=== PATIENT | female | born 1930 | race Caucasian/White ===

== ENCOUNTER 2016-10-06 00:52 | Emergency (ER) | payer OTHER ==
[~2016-10-06] VITALS: Ht 152.4 cm; Wt 79.1 kg
[~2016-10-06 00:52] MED LIST: ASPI81TA82 PO; BUPR-197 PO; CALCTAB36 PO; ENAL20TA81 PO; FE T325T PO; HYDR-2768 PO; KCL10C PO; METHO500 PO; METO50CR PO; TAB-TAB5 PO; TERA5CAP3 PO; [UNRECOGNIZED DRUG - CODE]
[2016-10-06 00:55] VITALS: BP 154/76; PULSE 74; RESP 18; TEMP 98.7; O2SAT 97
[2016-10-06] MEDS ORDERED: SODIUM CHLORIDE 0.9% FLUSH 5 ML FLUSH IVF PRN (01:15)
[2016-10-06 01:34] LABS: AUTOMATED NEUTROPHIL # 9.2 TH/MM3 (1.8-7.7); BASOPHIL # 0.2 TH/MM3 (0-0.2); BASOPHIL % 1.9 % (0.0-2.0); EOSINOPHIL # 0.1 TH/MM3 (0-0.4); EOSINOPHIL % 0.8 % (0.0-4.0); HEMATOCRIT 34.5 % (35.0-46.0); HEMO FLAGS DIFF FINAL; LYMPHOCYTE # 1.5 TH/MM3 (1.0-4.8); MEAN CELL VOLUME 92.8 FL (80.0-100.0); MEAN CORPUSCULAR HEMOGLOBIN 29.9 PG (27.0-34.0); MEAN CORPUSCULAR HGB CONC 32.2 % (32.0-36.0); MONO % 4.9 % (0.0-8.0); NEUT % 79.4 % (16.0-70.0); PLATELET COUNT 235 TH/MM3 (150-450); RED BLOOD COUNT 3.72 MIL/MM3 (4.00-5.30); RED CELL DISTRIBUTION WIDTH 12.8 % (11.6-17.2); WHITE BLOOD COUNT 11.6 TH/MM3 (4.0-11.0)
[2016-10-06 01:41] LABS: CHLORIDE 104 MEQ/L (98-107); POTASSIUM 3.8 MEQ/L (3.5-5.1); SODIUM (NA) 143 MEQ/L (136-145)
[2016-10-06 01:45] LABS: ANION GAP 8 MEQ/L (5-15); BICARBONATE 31.4 MEQ/L (21.0-32.0); BLOOD UREA NITROGEN 23 MG/DL (7-18)
[2016-10-06 01:48] LABS: ALT (GPT) 18 U/L (10-53); AST (GOT) 12 U/L (15-37); GLOMERULAR FILTRATION RATE 56 ML/MIN (>89)
[2016-10-06 01:49] LABS: TOTAL BILIRUBIN ADULT 0.3 MG/DL (0.2-1.0)
[2016-10-06 01:51] LABS: ALKALINE PHOSPHATASE 64 U/L (45-117)
[2016-10-06] MEDS ORDERED: HYDR25TA5 PO (01:57)
[2016-10-06] MEDS ORDERED: BUPR100CR PO (01:57)
[2016-10-06] MEDS ORDERED: CALC1TAB12 PO (01:57)
[2016-10-06] MEDS ORDERED: METO50TA11 PO (01:57)
[2016-10-06] MEDS ORDERED: FERR325T PO (01:57)
[2016-10-06] MEDS ORDERED: ROBA500T PO (01:57)
[2016-10-06] MEDS ORDERED: ENAL20TA81 PO (01:57)
[2016-10-06] MEDS ORDERED: TERA5CAP3 PO (01:57)
[2016-10-06] MEDS ORDERED: [UNRECOGNIZED DRUG - CODE] (01:57)
[2016-10-06] MEDS ORDERED: ASPI1TAB69 PO (01:57)
[2016-10-06] MEDS ORDERED: SODIUM CHLOR 0.9% 1000 ML INJ 1,000 ML IV SCH ×2 (02:15→03:45)
--- NOTE | 2016-10-06 02:52 | PD ---
HPI Chief Complaint: Abdominal Pain Time Seen by Provider: 01:02 Travel History International Travel<30 days: No Contact w/Intl Traveler<30days: No Traveled to known affect area: No History of Present Illness HPI The patient is an 85-year-old female that complains of generalized abdominal discomfort beginning at 6 PM tonight. She has vomiting but no diarrhea. She states she had some small amount of blood in the vomitus. She denies any fever. She has had a hysterectomy but still has her gallbladder and appendix. PFSH Past Medical History Hx Anticoagulant Therapy: Yes (81MG ASA) Anxiety: Yes Cardiovascular Problems: Yes (HTN) Hypertension: Yes ?: Not Menopausal: No Past Surgical History Section: Yes (3) Hysterectomy: Yes Social History Alcohol Use: Yes (OCCAS) Tobacco Use: Yes (CIGARETTES, 1/2 PPD) Substance Use: No Allergies-Medications (Allergen,Severity, Reaction): Coded Allergies: Morphine (Verified Allergy, Severe, Itching, 10/06/16) Reported Meds & Prescriptions Reported Meds & Active Scripts Active Reported Terazosin (Terazosin HCl) 5 Mg Cap 5 Mg PO HS Eql Natural Fiber (Psyllium) 58.6 % Pow Metoprolol Succinate ER 24 HR (Metoprolol Succinate) 50 Mg Tab 50 Mg PO DAILY Robaxin (Methocarbamol) 500 Mg Tab 500 Mg PO TID Hydrochlorothiazide 25 Mg Tab 25 Mg PO DAILY Ferrous Sulfate 325 Mg Tab 325 Mg PO DAILY Vasotec (Enalapril Maleate) 20 Mg Tab 20 Mg PO DAILY Calcium 500 +D (Calcium Carbonate-Cholecalciferol) 500-400 Mg-Unit Tab 1 Tab PO BID Wellbutrin SR 12 HR (Bupropion HCl) 100 Mg Tab 100 Mg PO Q12HR Aspirin 81 Mg Tabdr 81 Mg PO DAILY Review of Systems Except as stated in HPI: all other systems reviewed are Neg Physical Exam Narrative GENERAL: The patient is alert, oriented 3 and slight apparent distress with her abdominal discomfort and nausea. Her vital signs show blood pressure 121/ 76 but otherwise normal. SKIN: Warm and dry. No skin rash is seen. HEAD: Atraumatic. Normocephalic. EYES: Pupils equal and round. No scleral icterus. No injection or drainage. ENT: No nasal bleeding or discharge. Mucous membranes pink and moist. NECK: Trachea midline. No JVD. CARDIOVASCULAR: Regular rate and rhythm. No murmur appreciated. RESPIRATORY: No accessory muscle use. Clear to auscultation. Breath sounds equal bilaterally. GASTROINTESTINAL: Abdomen soft, non-tender except for some minimal discomfort in the midline epigastrium, protuberant but nondistended. Hepatic and splenic margins not palpable. No guarding or rebound is present. MUSCULOSKELETAL: No obvious deformities. No clubbing. No cyanosis. No edema. NEUROLOGICAL: Awake and alert. No obvious cranial nerve deficits. Motor grossly within normal limits. Normal speech. PSYCHIATRIC: Appropriate mood and affect; insight and judgment normal. Data Data Last Documented VS Vital Signs Date Time Temp Pulse Resp B/P Pulse Ox O2 Delivery O2 Flow Rate FiO2 10/06/16 00:55 98.7 74 18 154/76 97 Orders Complete Blood Count With Diff (10/06/16 01:07) Comprehensive Metabolic Panel (10/06/16 01:07) Lipase (10/06/16 01:07) Ct Abd/Pel W Iv Contrast(Rout) (10/06/16 01:07) Iv Access Insert/Monitor (10/06/16 01:07) Ecg Monitoring (10/06/16 01:07) Oximetry (10/06/16 01:07) Sodium Chloride 0.9% Flush (Ns Flush) (10/06/16 01:15) Urinalysis - C+S If Indicated (10/06/16 02:00) Sodium Chlor 0.9% 1000 Ml Inj (Ns 1000 M (10/06/16 02:15) Iohexol 350 Inj (Omnipaque 350 Inj) (10/06/16 02:56) Labs Laboratory Tests Test 10/06/16 01:30 White Blood Count 11.6 TH/MM3 Red Blood Count 3.72 MIL/MM3 Hemoglobin 11.1 GM/DL Hematocrit 34.5 % Mean Corpuscular Volume 92.8 FL Mean Corpuscular Hemoglobin 29.9 PG Mean Corpuscular Hemoglobin 32.2 % Concent Red Cell Distribution Width 12.8 % Platelet Count 235 TH/MM3 Mean Platelet Volume 8.9 FL Neutrophils (%) (Auto) 79.4 % Lymphocytes (%) (Auto) 13.0 % Monocytes (%) (Auto) 4.9 % Eosinophils (%) (Auto) 0.8 % Basophils (%) (Auto) 1.9 % Neutrophils # (Auto) 9.2 TH/MM3 Lymphocytes # (Auto) 1.5 TH/MM3 Monocytes # (Auto) 0.6 TH/MM3 Eosinophils # (Auto) 0.1 TH/MM3 Basophils # (Auto) 0.2 TH/MM3 CBC Comment DIFF FINAL Differential Comment Sodium Level 143 MEQ/L Potassium Level 3.8 MEQ/L Chloride Level 104 MEQ/L Carbon Dioxide Level 31.4 MEQ/L Anion Gap 8 MEQ/L Blood Urea Nitrogen 23 MG/DL Creatinine 0.95 MG/DL Estimat Glomerular Filtration 56 ML/MIN Rate Random Glucose 129 MG/DL Calcium Level 8.8 MG/DL Total Bilirubin 0.3 MG/DL Aspartate Amino Transf 12 U/L (AST/SGOT) Alanine Aminotransferase 18 U/L (ALT/SGPT) Alkaline Phosphatase 64 U/L Total Protein 6.5 GM/DL Albumin 3.4 GM/DL Lipase 146 U/L [facility] Medical Decision Making Medical Screen Exam Complete: Yes Emergency Medical Condition: Yes Medical Record Reviewed: Yes Interpretation(s) The CBC shows a white count of 11,600 with a hemoglobin 11.1 and hematocrit of 34.5 with 79% neutrophils. The complete metabolic profile shows a BUN of 23, glucose 129 but is otherwise unremarkable. The lipase is normal. The CT abdomen/pelvis with IV contrast shows mild distended small bowel with a focal area of mildly thickened small bowel on the left mid abdomen. Enteritis is suspected. Differential Diagnosis Small bowel obstruction, gastritis, reflux esophagitis, appendicitis, cholecystitis, bacterial enteritis Narrative Course The patient likely has an enteritis. She will be put on Flagyl and Levaquin. Phenergan will be given for nausea. If worse, she should return to emergency department. Diagnosis Primary Impression: Enteritis presumed infectious Additional Instructions: You have an infection of her bowel. We are going to give you to antibiotics for this. One is taken 3 times daily and the other is taken once daily. Phenergan is for nausea and it can make you slightly sleepy. Do not drink alcohol or drive with the Phenergan. Med/Other Pt SpecificInfo: Prescription(s) given Scripts Promethazine (Phenergan)25 Mg Tab25 Mg PO Q6H PRN (Nausea/Vomiting) #30 TAB Ref 0 Prov:Klever Grant MD 10/06/16 Metronidazole (Flagyl)500 Mg [id number] Mg PO TID 10 Days Ref 0 Prov:Klever Grant MD 10/06/16 Levofloxacin (Levaquin)500 Mg [id number] Mg PO DAILY 10 Days Ref 0 Prov:Klever Grant MD 10/06/16 Disposition: 01 DISCHARGE HOME Condition: Stable Klever Grant MD Oct 06, 2016 02:52
[2016-10-06] MEDS ORDERED: IOHEXOL 350 MG/ML 10 ML VIAL (for RAD DIAG) IV ONE (02:56)
--- NOTE | 2016-10-06 03:12 | RADHPO ---
EXAM DATE/TIME: 10/06/2016 02:52 [facility] COMPARISON: No previous studies available for comparison. INDICATIONS : Diffuse abdominal pain with nausea and hematemesis. IV CONTRAST: 100 cc Omnipaque 350 (iohexol) IV ORAL CONTRAST: No oral contrast ingested. RADIATION DOSE: 18.17 CTDIvol (mGy) MEDICAL HISTORY : Hypertension. SURGICAL HISTORY : Hysterectomy. section. ENCOUNTER: Initial ACUITY: 1 day PAIN SCALE: 5/10 LOCATION: abdomen TECHNIQUE: Volumetric scanning of the abdomen and pelvis was performed. Using automated exposure control and ad justment of the mA and/or kV according to patient size, radiation dose was kept as low as reasonably achievable to obtain optimal diagnostic quality images. FINDINGS: LOWER LUNGS: The visualized lower lungs are clear. LIVER: Homogeneous density without lesion. There is no dilation of the biliary tree. No calcified gallston es. SPLEEN: Normal size without lesion. PANCREAS: Within normal limits. KIDNEYS: Normal in size and shape. There is no solid mass, stone or hydronephrosis. There is a 6.8 cm cyst at the superior lateral left kidney. ADRENAL GLANDS: Within normal limits. VASCULAR: There is no aortic aneurysm. BOWEL/MESENTERY: There is a moderate hiatal hernia present. Colonic diverticula are present in the sigmoid region. The re is mild distended small bowel. There is a segment of apparently thickened small bowel in the midab domen just to the left of midline at the level the umbilicus. ABDOMINAL WALL: Within normal limits. RETROPERITONEUM: There is no lymphadenopathy. BLADDER: No wall thickening or mass. REPRODUCTIVE: The patient is status post hysterectomy. INGUINAL: There is no lymphadenopathy or hernia. MUSCULOSKELETAL: There is degenerative change in the lumbar spine. CONCLUSION: 1. Mild distended small bowel with a focal area of mildly thickened small bowel in the left midabdome n. Some degree of enteritis or other causes of some mild degree of focal small bowel thickening can b e considered. 2. Moderate hiatal hernia. 3. Sigmoid colon diverticula. Artemio Childers MD on October 06, 2016 at 3:05 Board Certified Radiologist. This report was verified electronically.
[2016-10-06 03:14] VITALS: BP 147/72; PULSE 84; RESP 16; O2SAT 99
[2016-10-06] MEDS ORDERED: LEVA500T PO (03:29)
[2016-10-06] MEDS ORDERED: METR-1 PO (03:30)
[2016-10-06] MEDS ORDERED: PROM25TA5 PO (03:31)
[2016-10-06] MEDS ORDERED: LEVOFLOXACIN 500 MG PREMIX INJ 100 ML IV ONE (03:45)
[2016-10-06] MEDS ORDERED: metroNIDAZOLE 500 MG INJ 100 ML IV ONE (03:45)
[2016-10-06 06:11] LABS: BLOOD, URINE NEG (NEG); GLUCOSE,URINE NEG (NEG); KETONE, URINE NEG (NEG); PH, URINE 6.5 (5.0-8.5)
[2016-10-06 06:14] LABS: NITRITE,URINE POS (NEG)
[2016-10-06 06:15] LABS: URINE COLOR STRAW (YELLW/STRAW)
[2016-10-06 06:17] LABS: BACTERIA, URINE MANY /hpf; COMMENT (UR) CULTURE INDICATED; CULTURE IF INDICATED CULTURE INDICATED; RBC, URINE 0-2 /hpf (0-3); SQUAMOUS EPITHELIAL CELL URINE 0-5 /hpf (0-5); WBC, URINE 0-2 /hpf (0-5)
[2016-10-06 06:20] VITALS: BP 134/72
== END 2016-10-06 06:38 | disposition home or self-care (01) ==
LOC: PHED 00:52
DX: A09 Infectious gastroenteritis and colitis, unspecified (principal); I10 Essential (primary) hypertension; Z79.01 Long term (current) use of anticoagulants; F17.210 Nicotine dependence, cigarettes, uncomplicated; R82.90 Unspecified abnormal findings in urine
CPT/HCPCS: 74177; 80053; 81001; 83690; 85025; 87086; 96361; 96365; 96367; 99284; J1956; J7030; Q9967